=== PATIENT | male | born 1945 | race Caucasian/White ===

== ENCOUNTER 2018-06-22 14:37 | Outpatient (CLI) | payer MEDICARE, OTHER ==
--- NOTE | 2018-06-24 17:43 | CT Report ---
Reason: SCREENING FOR MALIGNANT NEOPLASM OF RESPIRATORY OR Procedure Date: 06/22/2018 Accession Number: [id number] / [id number] Procedure: CT - Chest/Lung Screen Low Dose W/O CPT Code: FULL RESULT: EXAM CT LUNG SCREEN EXAM DATE: 06/22/2018 03:03 PM. HISTORY: 73-year-old patient with [id number] smoking history. Current smoker or has quit smoking within the past last 15 years: Yes. COMPARISON: None. TECHNIQUE: CT examination of the entire thorax without contrast was performed using low-dose technique. Thin section coronal, axial, sagittal and MIP axial images were obtained. In accordance with CT protocol optimization, one or more of the following dose reduction techniques were utilized for this exam: automated exposure control, adjustment of mA and/or KV based on patient size, or use of iterative reconstructive technique. FINDINGS: Nodules: Right upper lobe: None. Right middle lobe: None. Right lower lobe: None. Left upper lobe: 3 mm peripheral solid (26/4). Left lower lobe: 3 mm peripheral solid (103). Emphysema: Mild upper lobe centrilobular emphysema. Pleura: No calcification or effusion. Thoracic Aorta: No aneurysm. Mediastinum: No mass or adenopathy. Normal heart size. Coronary calcifications: Mild. Other pulmonary findings: None. Other extrapulmonary findings: Possible posterior upper pole right renal cyst, not well characterized. IMPRESSION: Lung-RADS ASSESSMENT CATEGORY: 2 - Benign appearance or behavior. Probability of malignancy: Less than 1%. RECOMMENDATION: Continue annual screening with LDCT per Lung-RADS guidelines. [facility]
== END 2018-06-22 14:38 | disposition home or self-care (01) ==
LOC: DI 14:37
PROVIDERS: ATTEND Internal Medicine
DX: Z12.2 Encounter for screening for malignant neoplasm of respiratory organs (principal); J43.9 Emphysema, unspecified; R91.1 Solitary pulmonary nodule; Z87.891 Personal history of nicotine dependence

== ENCOUNTER 2019-08-17 12:21 | Emergency (ER) | payer MEDICARE ==
[2019-08-17] MEDS ORDERED: PROPARACAINE 0.5% OPHTH DROPS 15 ML EACHEYE STA (13:35)
--- NOTE | 2019-08-17 14:15 | ED Physician Documentation ---
PD HPI OPHTHO - Stated complaint Stated Complaint: RT EYE PX - Chief complaint Chief Complaint: Heent - History obtained from History obtained from: Patient - History of Present Illness Timing - onset: Yesterday Timing - duration: Days (1) Timing - details: Abrupt onset Pain level max: 5 Pain level now: 4 Location: Right Quality / character: Aching Associated symptoms: Redness, Swelling. No: Photophobia Contributing factors: Blunt trauma (tree branch vs eye). No: Chemical exposure, acid, Chemical exposure, base, Wears glasses, Wears contacts Recently seen: Not recently seen Review of Systems Constitutional: denies: Fever Eyes: reports: Photophobia PD PAST MEDICAL HISTORY - Past Medical History Past Medical History: Yes Cardiovascular: None Respiratory: None Neuro: None Endocrine/Autoimmune: None GI: None : None HEENT: Other Psych: None Musculoskeletal: None Derm: None - Past Surgical History Past Surgical History: Yes HEENT: Cataracts - Present Medications Home Medications: Ambulatory Orders Medication Instructions Recorded Confirmed Polymyxin B/Trimeth Ophth Drop 1 drops RIGHTEYE Q3H 7 Days #1 08/17/19 [Polytrim Ophth Drops] bottle - Allergies Allergies/Adverse Reactions: Allergies Allergy/AdvReac Type Severity Reaction Status Date / Time No Known Drug Allergies Allergy Verified 08/17/19 12:23 - Social History Does the pt smoke?: Yes Smoking Status: Current every day smoker Does the pt drink ETOH?: Yes Does the pt have substance abuse?: No - Immunizations Immunizations are current?: Yes - POLST Patient has POLST: No PD ED PE NORMAL - Vitals Vital signs reviewed: Yes - General General: Alert and oriented X 3, No acute distress - HEENT HEENT: Moist mucous membranes, Other (R corneal abrasion. no hyphema. No FB. Eyelids everted. neg areli sign.) - Neck Neck: Supple, no meningeal sign - Derm Derm: Warm and dry - Neuro Neuro: Alert and oriented X 3 Results - Vitals Vitals: Vital Signs - 24 hr 08/17/19 12:23 Temperature 36.5 C Heart Rate 77 Respiratory 14 Rate Blood Pressure 159/72 H O2 Saturation 99 Oxygen O2 Source Room air PD MEDICAL DECISION MAKING - ED course Complexity details: considered differential, d/w patient, d/w family ED course: Patient with a right eye corneal abrasion. Will place on ophthalmic antibiotics. Patient counseled regarding signs and symptoms for which I believe and urgent re-evaluation would be necessary. Patient with good understanding of and agreement to plan and is comfortable going home at this time This document was made in part using voice recognition software. While efforts are made to proofread this document, sound alike and grammatical errors may occur. Departure - Departure Disposition: 01 Home, Self Care Clinical Impression: Corneal abrasion Qualifiers: Encounter type: initial encounter Laterality: right Qualified Code(s): S05.01XA - Injury of conjunctiva and corneal abrasion without foreign body, right eye, initial encounter Condition: Good Instructions: ED Eye Injury Corneal Abrasion Follow-Up: Nick Awan MD [Primary Care Provider] - Within 1 week Prescriptions: Polymyxin B/Trimeth Ophth Drop [Polytrim Ophth Drops] 1 drops RIGHTEYE Q3H 7 Days #1 bottle Comments: Use the eyedrops as prescribed. Return if you worsen. Follow-up with your doctor for repeat evaluation within 1 week.
[2019-08-17 14:20] VITALS: BP 137/83
== END 2019-08-17 14:28 | disposition home or self-care (01) ==
LOC: ED 12:21
DX: S05.01XA Injury of conjunctiva and corneal abrasion without foreign body, right eye, initial encounter (principal); W22.8XXA Striking against or struck by other objects, initial encounter; F17.200 Nicotine dependence, unspecified, uncomplicated
CPT/HCPCS: 99282; 99284; J3490

== ENCOUNTER 2019-10-08 09:48 | Outpatient (CLI) | payer MEDICARE ==
--- NOTE | 2019-10-08 11:08 | Ultrasound Report ---
Reason: SMOKER,SCREENING FOR AAA Procedure Date: 10/08/2019 Accession Number: [id number] / [id number] Procedure: US - Aorta Screening CPT Code: Final Report FULL RESULT: EXAM: AORTIC DOPPLER ULTRASOUND EXAM DATE: 10/08/2019 10:47 AM. CLINICAL HISTORY: Smoker, screening for abdominal aortic aneurysm. COMPARISON: None. TECHNIQUE: Real-time sonographic imaging of retroperitoneal vascular structures, including color-flow, Doppler flow and spectral analysis was performed by the bias binding folder. Multiple loan servicing representative static images were saved for review. FINDINGS: Aorta: The abdominal aorta was adequately visualized. No evidence for abdominal aortic aneurysm. Minimal atherosclerotic plaque visualized. Proximal: 2.4 cm. Mid: 2.1 cm. Distal: 1.8 cm. Iliac Vessels: The visualized proximal common iliac arteries are normal in caliber. Other: None. IMPRESSION: No abdominal aortic aneurysm evident. RAD[facility]
== END 2019-10-08 09:49 | disposition home or self-care (01) ==
LOC: DI 09:48
PROVIDERS: ATTEND Registered Nurse
DX: Z13.6 Encounter for screening for cardiovascular disorders (principal); F17.200 Nicotine dependence, unspecified, uncomplicated
CPT/HCPCS: 76706

== ENCOUNTER 2020-05-21 12:43 | Day surgery (SDC) | payer MEDICARE ==
[2020-05-21] MEDS ORDERED: fentaNYL 250 MCG/5 ML VIAL IVP ONE (12:44)
[2020-05-21] MEDS ORDERED: MIDAZOLAM 2 MG/2 ML VIAL IVP ONE (12:44)
[2020-05-21] MEDS ORDERED: LACTATED RINGERS 1,000 ML IV ONE ×2 (13:07→15:09)
[2020-05-21 15:26] VITALS: BP 145/79
== END 2020-05-21 12:44 | disposition home or self-care (01) ==
LOC: SDS 12:43
PROVIDERS: ATTEND Surgery
PROC: 0DBM8ZZ Excision of Descending Colon, Via Natural or Artificial Opening Endoscopic (ICD-10-PCS; 2020-05-21)
PROC: 0DBP8ZZ Excision of Rectum, Via Natural or Artificial Opening Endoscopic (ICD-10-PCS; principal; 2020-05-21 13:45)
DX: D12.4 Benign neoplasm of descending colon (principal); D12.5 Benign neoplasm of sigmoid colon; K63.5 Polyp of colon; K62.1 Rectal polyp; K57.30 Diverticulosis of large intestine without perforation or abscess without bleeding; F17.200 Nicotine dependence, unspecified, uncomplicated
CPT/HCPCS: 45380; 45385; J3010; J7120

== ENCOUNTER 2020-08-26 13:15 | Outpatient (CLI) | payer MEDICARE | END 2020-08-26 13:16 | disposition home or self-care (01) | LOC: RT 13:15 | PROVIDERS: ATTEND Internal Medicine | DX: Z72.0 Tobacco use (principal) | CPT/HCPCS: 94060; 94729 ==

== ENCOUNTER 2021-09-29 09:36 | Outpatient (CLI) | payer MEDICARE ==
[2021-09-29 14:49] LABS: BASOPHILS % (AUTO) 0.4 %; EOSINOPHILS # (AUTO) 0.2 10^3/uL (0.0-0.7); EOSINOPHILS % (AUTO) 2.3 %; HCT - HEMATOCRIT 49.7 % (42.0-52.0); HGB - HEMOGLOBIN 16.6 g/dL (14.0-18.0); LYMPHOCYTES % (AUTO) 20.4 %; MEAN CORPUSCULAR HEMOGLOBIN 33.5 pg (27.0-31.0); MEAN CORPUSCULAR HGB CONC 33.4 g/dL (32.0-36.0); MEAN CORPUSCULAR VOLUME 100.2 fL (80.0-94.0); MEAN PLATELET VOLUME 10.1 fL (7.4-11.4); MONOCYTES # (AUTO) 0.7 10^3/uL (0.0-1.0); MONOCYTES % (AUTO) 7.3 %; NEUTROPHILS # (AUTO) 6.9 10^3/uL (1.5-6.6); NEUTROPHILS % (AUTO) 69.1 %; PLT - PLATELET COUNT 258 10^3/uL (130-450); RED BLOOD COUNT 4.96 10^6/uL (4.70-6.10)
[2021-09-29 15:17] LABS: ALBUMIN 3.9 g/dL (3.2-5.5); ALBUMIN/GLOBULIN RATIO 1.2 (1.0-2.2); ALKALINE PHOSPHATASE 64 IU/L (42-121); ALT ALANINE AMINOTRANSFERASE 24 IU/L (10-60); AST ASPARTATE AMINOTRANSFERASE 20 IU/L (10-42); BILIRUBIN,TOTAL 0.8 mg/dL (0.2-1.0); BUN - BLOOD UREA NITROGEN 17 mg/dL (6-20); CARBON DIOXIDE - CO2 29 mmol/L (21-32); CHLORIDE 102 mmol/L (101-111); CHOL/HDL RATIO 3.9 (<5.0); CHOLESTEROL 131 mg/dL; GFR - MDRD 73 (>89); GLUCOSE 119 mg/dL (70-100); HDL CHOLESTEROL 34 mg/dL; LDL CHOLESTEROL,CALCULATED 77 mg/dL; LDL/HDL RATIO 2.3 (<3.6); POTASSIUM 4.5 mmol/L (3.5-5.0); SODIUM 139 mmol/L (135-145); TOTAL PROTEIN 7.2 g/dL (6.7-8.2); TRIGLYCERIDES 100 mg/dL; VLDL CHOLESTEROL 20 mg/dL
== END 2021-09-29 09:37 | disposition home or self-care (01) ==
LOC: LAB.S 09:36
PROVIDERS: ATTEND Internal Medicine
DX: Z72.0 Tobacco use (principal); E78.5 Hyperlipidemia, unspecified
CPT/HCPCS: 36415; 80053; 80061; 83721; 85025

== ENCOUNTER 2022-11-23 10:23 | Outpatient (CLI) | payer MEDICARE ==
--- NOTE | 2022-11-23 16:02 | XRAY Report ---
PROCEDURE: Chest 2 View X-Ray INDICATIONS: WHEEZING TECHNIQUE: 2 views of the chest were acquired. COMPARISON: CT chest 06/22/2018 FINDINGS: Surgical changes and devices: None. Lungs and pleura: No pleural effusions or pneumothorax. No suspicious focal air space opacity identi fied. Mediastinum: Mediastinal contours appear normal. Heart size is normal. Bones and chest wall: No suspicious bony lesions. Overlying soft tissues appear unremarkable. IMPRESSION: No acute cardiopulmonary process. Reviewed by: Ramana Cross MD on 11/23/2022 4:01 PM PDT Approved by: Ramana Cross MD on 11/23/2022 4:01 PM PDT Station ID: [id number]
== END 2022-11-23 10:24 | disposition home or self-care (01) ==
LOC: DI.S 10:23
PROVIDERS: ATTEND Internal Medicine
DX: R06.2 Wheezing (principal)

== ENCOUNTER 2024-03-20 10:54 | Outpatient (CLI) | payer MEDICARE ==
--- NOTE | 2024-03-20 12:45 | XRAY Report ---
PROCEDURE: Knee 3V RT INDICATIONS: RT KNEE PAIN TECHNIQUE: 3 views of the knee(s) were acquired. COMPARISON: None. FINDINGS: Bones: No fractures or dislocations. No suspicious bony lesions. Tricompartmental joint space iram rowing with associated osteophytosis. Subchondral sclerosis of the medial tibial femoral compartment. Soft tissues: Small knee joint effusion. No suspicious soft tissue calcifications or masses. Chondr ocalcinosis IMPRESSION: Mild to moderate tricompartmental osteoarthritis. Kellgren-Rachid scale of osteoarthritis: 2. Chondrocalcinosis, which could be age-related, associated with CPPD or parathyroid disorder. Reviewed by: Aaron Troy MD on 03/20/2024 12:43 PM PDT Approved by: Aaron Troy MD on 03/20/2024 12:43 PM PDT Station ID: [id number]
== END 2024-03-20 10:55 | disposition home or self-care (01) ==
LOC: DI.S 10:54
PROVIDERS: ATTEND Registered Nurse
DX: M17.11 Unilateral primary osteoarthritis, right knee (principal); M11.261 Other chondrocalcinosis, right knee